=== PATIENT | male | born 1950 | race Caucasian/White ===

== ENCOUNTER 2018-01-22 09:24 | Day surgery (SDC) | payer MEDICARE, BC ==
[~2018-01-22 09:24] MED LIST: Lactated Ringers 1,000 ML IV SCH; Lidocaine 1%/Sod Bicarbonate in NS 8.4% 1 ML Syringe IDERM PRN; Sodium Chloride 0.9% 10 ML Syringe FLUSH PRN
[2018-01-22] MEDS ORDERED: Lidocaine 1% 4 ML ONE (09:43)
[2018-01-22] MEDS ORDERED: fentaNYL 100 MCG/2 ML SDV ONE (09:43)
[2018-01-22] MEDS ORDERED: Propofol 200 MG/20 ML SDV ONE (09:43)
[2018-01-22] MEDS ORDERED: Metoprolol Tartrate 50 MG Tab PO ONE (10:47)
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
[2018-01-22] MEDS ORDERED: Simethicone Drops 40 MG/0.6 ML 30 ML Bottle ONE (12:02)
--- NOTE | 2018-01-22 12:16 | PCM.OPNOTE ---
- General Post-Op/Procedure Note Date of Surgery/Procedure: 01/22/18 Operative Procedure(s): colonosocopy to cecum screening Pre Op Diagnosis: screening colonoscopy Post-Op Diagnosis: Same Anesthesia Technique: MAC Primary Surgeon: Shahriar Arenas EBL in mLs: 0 Complications: None Condition: Good
--- NOTE | 2018-01-22 12:22 | PCM48HPAN ---
Post Anesthesia Note - EVALUATION WITHIN 48HRS OF ANESTHETIC Vital Signs in Normal Range: Yes Patient Participated in Evaluation: Yes Respiratory Function Stable: Yes Airway Patent: Yes Cardiovascular Function Stable: Yes Hydration Status Stable: Yes Pain Control Satisfactory: Yes Nausea and Vomiting Control Satisfactory: Yes Mental Status Recovered: Yes Pulse Rate: 62 SaO2: 93 Resp Rate: 16 Temperature: 98.3 F Blood Pressure: 95/49
[2018-01-22 13:37] VITALS: BP 119/81
--- NOTE | 2018-01-23 08:24 | OR ---
DATE OF OPERATION: 01/22/2018 SURGEON: Shahriar Arenas MD PREOPERATIVE DIAGNOSIS: Screening colonoscopy. POSTOPERATIVE DIAGNOSIS: Screening colonoscopy. OPERATION PERFORMED: Colonoscopy to cecum. FINDINGS: Normal study. RECOMMENDATION: Repeat colonoscopy in 10 years. DESCRIPTION OF PROCEDURE: The patient was taken to the endoscopy room, placed in a supine position, connected to monitoring equipment, given IV sedation. He was placed in left lateral position. The area was unremarkable. Rectal exam showed good sphincter tone. A video Olympus colonoscope was then introduced into the rectum and threaded up without problem to the cecum, where the appendicular orifice and ileocecal valve were noted. Prep was excellent throughout the colon. [place] cleansing score grade A. The scope was slowly withdrawn showing the cecum, ascending colon, transverse colon, descending colon, sigmoid colon, and rectum. Retroflexed view was done. The patient tolerated the procedure, sent to recovery room in a stable condition, will be followed up as needed in the clinic. ANESTHESIA: ESTIMATED BLOOD LOSS: MMODAL /[id number]
== END 2018-01-22 13:30 | disposition home or self-care (01) ==
LOC: JD.SDS 09:24
PROVIDERS: ATTEND Surgery
DX: Z12.11 Encounter for screening for malignant neoplasm of colon (principal); J45.20 Mild intermittent asthma, uncomplicated; I10 Essential (primary) hypertension; E78.00 Pure hypercholesterolemia, unspecified; Z79.82 Long term (current) use of aspirin; Z79.899 Other long term (current) drug therapy; Z88.7 Allergy status to serum and vaccine
CPT/HCPCS: A9270; G0121; J2001; J3010; J7120; J2704

== ENCOUNTER 2021-09-30 12:31 | Inpatient (IN) | payer MEDICARE, BC ==
[2021-09-30] MEDS ORDERED: Sodium Chloride 0.9% 10 ML Syringe FLUSH PRN (13:04)
[2021-09-30] MEDS ORDERED: Sodium Chloride 0.9% 1,000 ML IV STA (13:05)
[2021-09-30] MEDS ORDERED: Ondansetron 4 MG/2 ML SDV IVPUSH ONE (13:05)
[2021-09-30] MEDS ORDERED: Diatrizoate Meglumine/Diatrizoate Sodium 37% 120 ML Bottle PO ONE (13:09)
[2021-09-30] MEDS ORDERED: Lactated Ringers 1,000 ML IV SCH (15:45)
[2021-09-30] MEDS ORDERED: Albuterol 6.7 GM Inhaler INH PRN ×2 (17:05→17:12)
[2021-09-30] MEDS: Acetaminophen 325 MG Tab PO SCH (18:25)
[2021-09-30] MEDS: Simvastatin 40 MG Tab PO SCH (20:09)
[2021-10-01] MEDS: Lactated Ringers 1,000 ML IV SCH ×2 (01:11→17:25)
[2021-10-01] MEDS: Acetaminophen 325 MG Tab PO SCH ×3 (02:13→17:14)
[2021-10-01] MEDS ORDERED: fentaNYL 250 MCG/5 ML SDV ONE (06:26)
[2021-10-01] MEDS ORDERED: Midazolam 1 MG/ML 2 ML SDV ONE (06:26)
[2021-10-01] MEDS ORDERED: Succinylcholine/Sod PF 100 MG/5 ML SYRINGE IV ONE (06:27)
[2021-10-01] MEDS: Metoprolol Tartrate 50 MG Tab PO SCH ×2 (06:27→08:34)
[2021-10-01] MEDS ORDERED: Lidocaine 1% 8 ML ONE (06:28)
[2021-10-01] MEDS ORDERED: Bupivacaine 0.5% 30 ML SDV ONE (06:28)
[2021-10-01] MEDS ORDERED: Etomidate 2 MG/ML 20 ML SDV IVPUSH ONE (06:32)
[2021-10-01] MEDS ORDERED: Dexamethasone 4 MG/ML 5 ML MDV ONE (06:34)
[2021-10-01] MEDS ORDERED: Ondansetron 4 MG/2 ML SDV ONE (06:34)
[2021-10-01] MEDS ORDERED: Rocuronium 50 MG/5 ML Vial ONE (07:15)
[2021-10-01] MEDS ORDERED: ePHEDrine 50 MG/ML SDV ONE (07:26)
[2021-10-01] MEDS ORDERED: ceFAZolin 1 GM Vial ONE (07:32)
[2021-10-01] MEDS ORDERED: Lactated Ringers 1,000 ML ONE ×2 (08:12)
[2021-10-01] MEDS ORDERED: fentaNYL 100 MCG/2 ML SDV IVPUSH PRN (08:27)
[2021-10-01] MEDS ORDERED: HYDROmorphone 0.5 MG/0.5 ML Syringe IVPUSH PRN (08:27)
[2021-10-01] MEDS ORDERED: Sugammadex Sodium 200 MG/2 ML VIAL ONE (08:40)
[2021-10-01] MEDS ORDERED: Albuterol 0.083% 2.5 MG/3 ML Neb Soln NEB ONE ×2 (09:47→10:00)
[2021-10-01] MEDS ORDERED: Albuterol 0.083% 2.5 MG/3 ML Neb Soln ONE (09:53)
[2021-10-01] MEDS: Simvastatin 40 MG Tab PO SCH (20:23)
[2021-10-02] MEDS: Acetaminophen 325 MG Tab PO SCH ×2 (01:01→10:01)
[2021-10-02] MEDS: Lactated Ringers 1,000 ML IV SCH (01:03)
[2021-10-02] MEDS ORDERED: oxyCODONE 5 MG Tab PO PRN (08:05)
[2021-10-02] MEDS ORDERED: Ondansetron 4 MG Tab.DIS PO PRN (08:06)
[2021-10-02] MEDS ORDERED: Docusate Sodium 100 MG Cap PO SCH (09:00)
[2021-10-02] MEDS ORDERED: Tamsulosin 0.4 MG Cap.ER PO SCH (09:00)
[2021-10-02] MEDS: Metoprolol Tartrate 50 MG Tab PO SCH (10:01)
[2021-10-02] MEDS ORDERED: Simethicone 80 MG Tab.Chew PO SCH (11:00)
[2021-10-02 15:03] VITALS: BP 156/92; PULSE 77
== END 2021-10-02 15:46 | disposition home or self-care (01) | DRG 352 ==
LOC: JD.ED 12:31 → JD.MS 17:01
PROVIDERS: ADMIT Surgery; ATTEND Surgery
PROC: 0D9670Z Drainage of Stomach with Drainage Device, Via Natural or Artificial Opening (ICD-10-PCS; 2021-09-30)
PROC: 0YQ64ZZ Repair Left Inguinal Region, Percutaneous Endoscopic Approach (ICD-10-PCS; principal; 2021-10-01)
DX: K40.30 Unilateral inguinal hernia, with obstruction, without gangrene, not specified as recurrent (principal); K56.699 Other intestinal obstruction unspecified as to partial versus complete obstruction; K40.31 Unilateral inguinal hernia, with obstruction, without gangrene, recurrent; J45.909 Unspecified asthma, uncomplicated; Z91.048 Other nonmedicinal substance allergy status; I65.29 Occlusion and stenosis of unspecified carotid artery; Z90.49 Acquired absence of other specified parts of digestive tract; Z20.822 Contact with and (suspected) exposure to COVID-19; Z88.7 Allergy status to serum and vaccine; Z79.82 Long term (current) use of aspirin; Z91.09 Other allergy status, other than to drugs and biological substances; Z79.899 Other long term (current) drug therapy; Z87.442 Personal history of urinary calculi; Z90.89 Acquired absence of other organs
CPT/HCPCS: 36415; 74176; 80053; 83690; 85025; 86140; J2405; J7030; J7120; Q9963; 00840; 71045; 71045-26; 80048; 94640; 94760; 94761; 99140; 99285; A9270-GY; C1781; J0330; J0690; J1100; J2250; J2370; J2710; J3010; J3490; U0002

== ENCOUNTER 2024-09-23 11:31 | Inpatient (IN) | payer MEDICARE, BC ==
[2024-09-23] MEDS ORDERED: Naloxone 0.4 MG/ML SDV IVPUSH PRN (11:49)
[2024-09-23] MEDS: fentaNYL 100 MCG/2 ML SDV IVPUSH ONE (12:00)
[2024-09-23 12:03] LABS: BASOPHILS ABSOLUTE AUTO 0.1 K/mm3 (0.0-0.2); EOSINOPHILS ABSOLUTE AUTO 0.4 K/mm3 (0.0-0.4); EOSINOPHILS PERCENT AUTO 4.8 % (0.0-6.0); HEMATOCRIT 53.3 % (42.0-52.0); HEMOGLOBIN 17.5 gm/dl (14.0-18.0); IMMATURE GRAN ABSOLUTE AUTO 0.03 K/mm3 (0.00-0.05); IMMATURE GRAN PERCENT AUTO 0.3 % (0.0-0.4); LYMPHOCYTES ABSOLUTE AUTO 1.5 K/mm3 (1.0-4.8); LYMPHOCYTES PERCENT AUTO 17.3 % (24.0-44.0); MEAN CORPUSCULAR HEMOGLOBIN 30.9 pg (28.0-32.0); MEAN CORPUSCULAR HGB CONC 32.8 g/dl (32.0-36.0); MEAN CORPUSCULAR VOLUME 94.2 fl (83.0-99.0); MEAN PLATELET VOLUME 9.9 fl (9.4-12.4); MONOCYTES ABSOLUTE AUTO 0.6 K/mm3 (0.0-0.8); MONOCYTES PERCENT AUTO 7.2 % (0.0-8.0); NEUTROPHILS ABSOLUTE AUTO 6.1 K/mm3 (1.8-7.7); NEUTROPHILS PERCENT AUTO 69.4 % (41.0-71.0); PLATELET COUNT,PLT 159 K/mm3 (150-400); RED BLOOD CELL COUNT 5.66 M/mm3 (4.52-5.90); WHITE BLOOD CELL COUNT,WBC 8.79 K/mm3 (3.9-11.3)
[2024-09-23] MEDS: Diphtheria,Pertussis(Acell),Tetanus Vaccine 0.5 ML Syringe IM ONE (12:03)
[2024-09-23] MEDS: Albuterol/Ipratropium 3.0-0.5 MG/3 ML Neb Soln NEB ONE (12:08)
[2024-09-23 12:29] LABS: ALANINE AMINOTRANSFERASE,ALT 12 U/L (16-63); ALBUMIN 3.6 g/dl (3.4-5.0); ALKALINE PHOSPHATASE 103 U/L (46-116); ANION GAP 7.7 (5-15); ASPARTATE AMNIOTRANSFERASE,AST 12 U/L (15-37); BILIRUBIN TOTAL 0.8 mg/dL (0.2-1.0); BLOOD UREA NITROGEN,BUN 25 mg/dL (7-18); BUN/CREATININE RATIO 15.6 (14-18); CALCIUM 8.8 mg/dL (8.5-10.1); CARBON DIOXIDE,CO2 33 mEq/L (21-32); CHLORIDE,CL 103 mEq/L (98-107); CREATINE KINASE,CK 142 U/L (39-308); CREATININE 1.6 mg/dL (0.7-1.3); ESTIMATED GFR 46 mL/min (>60); GLUCOSE RANDOM 109 mg/dL (70-99); POTASSIUM,K 4.7 mEq/L (3.5-5.1); PROTEIN TOTAL,TP 7.3 g/dl (6.4-8.2); SODIUM,NA 139 mEq/L (136-145)
[2024-09-23] MEDS ORDERED: Melatonin 3 MG Tab PO PRN (16:05)
[2024-09-23] MEDS ORDERED: Ondansetron 4 MG/2 ML SDV IV PRN (16:05)
[2024-09-23] MEDS ORDERED: Morphine 2 MG/ML SYRINGE IVPUSH PRN (16:05)
[2024-09-23] MEDS: Albuterol/Ipratropium 3.0-0.5 MG/3 ML Neb Soln NEB SCH (20:49)
[2024-09-23] MEDS: oxyCODONE 5 MG Tab PO PRN (21:53)
[2024-09-24 04:56] LABS: INR 1.16; PROTHROMBIN TIME 12.2 SECONDS (9.7-12.0)
[2024-09-24 04:57] LABS: PTT,PARTIAL THROMBOPLSTIN TIME 29.6 SECONDS (21.7-31.4)
[2024-09-24] MEDS ORDERED: Albuterol 0.083% 2.5 MG/3 ML Neb Soln NEB PRN (09:56)
[2024-09-24] MEDS: Polyethylene Glycol 3350 Powder 17 GM Packet PO PRN (10:59)
[2024-09-24] MEDS: Enoxaparin 40 MG/0.4 ML Syringe SUBCUT SCH (10:59)
[2024-09-24] MEDS: Metoprolol Tartrate 50 MG Tab PO SCH (11:00)
[2024-09-24] MEDS: Docusate Sodium 100 MG Cap PO SCH (11:00)
[2024-09-24] MEDS: Tamsulosin 0.4 MG Cap.ER PO SCH (11:00)
[2024-09-24] MEDS: Morphine 2 MG/ML SYRINGE IVPUSH PRN (16:42)
[2024-09-24 18:22] LABS: APPEARANCE,URINE TURBID (Clear); BILIRUBIN,URINE 1+ (Negative); COLOR,URINE RED (Yellow); GLUCOSE,URINE NEGATIVE (Negative); KETONES,URINE TRACE (Negative); LEUKOCYTE ESTERASE,URINE 1+ (Negative); NITRITE,URINE POSITIVE (Negative); OCCULT BLOOD,URINE 3+ (Negative); PH,URINE 5.5 (5.0-8.0); PROTEIN,URINE 3+ (Negative)
[2024-09-24 18:48] LABS: EPITHELIAL CELLS,URINE 0-5 /hpf (0-5); RBC,URINE 50-75 /hpf (0-5)
[2024-09-24 18:49] LABS: AMORPHOUS SEDIMENT,URINE MODERATE /hpf (NOT SEEN); BACTERIA,URINE MANY /hpf (FEW); MUCUS,URINE FEW /hpf (FEW)
[2024-09-24 18:50] LABS: YEAST BUDDING,URINE FEW (NOT SEEN)
[2024-09-24] MEDS: Sodium Chloride 0.9% 1,000 ML IV SCH (18:53)
[2024-09-24 19:17] LABS: BASOPHILS PERCENT AUTO 0.3 % (0.0-1.0); EOSINOPHILS ABSOLUTE AUTO 0.2 K/mm3 (0.0-0.4); EOSINOPHILS PERCENT AUTO 1.3 % (0.0-6.0); HEMATOCRIT 50.2 % (42.0-52.0); HEMOGLOBIN 16.6 gm/dl (14.0-18.0); IMMATURE GRAN ABSOLUTE AUTO 0.05 K/mm3 (0.00-0.05); IMMATURE GRAN PERCENT AUTO 0.4 % (0.0-0.4); LYMPHOCYTES ABSOLUTE AUTO 0.7 K/mm3 (1.0-4.8); LYMPHOCYTES PERCENT AUTO 5.7 % (24.0-44.0); MEAN CORPUSCULAR HGB CONC 33.1 g/dl (32.0-36.0); MEAN CORPUSCULAR VOLUME 93.7 fl (83.0-99.0); MEAN PLATELET VOLUME 10.2 fl (9.4-12.4); MONOCYTES PERCENT AUTO 8.1 % (0.0-8.0); NEUTROPHILS ABSOLUTE AUTO 10.3 K/mm3 (1.8-7.7); NEUTROPHILS PERCENT AUTO 84.2 % (41.0-71.0); PLATELET COUNT,PLT 146 K/mm3 (150-400); RED BLOOD CELL COUNT 5.36 M/mm3 (4.52-5.90); WHITE BLOOD CELL COUNT,WBC 12.21 K/mm3 (3.9-11.3)
[2024-09-24 19:33] LABS: ANION GAP 9.4 (5-15); BUN/CREATININE RATIO 20.7 (14-18); CALCIUM 8.6 mg/dL (8.5-10.1); CREATININE 1.5 mg/dL (0.7-1.3); EST CRCL DRUG DOSING (CG) 43.07 mL/min; POTASSIUM,K 4.4 mEq/L (3.5-5.1)
[2024-09-24] MEDS: atorvaSTATin 20 MG Tab PO SCH (20:08)
[2024-09-24] MEDS: cefTRIAXone 1 GM Vial IVPUSH SCH (20:08)
[2024-09-25 05:00] LABS: BASOPHILS PERCENT AUTO 0.2 % (0.0-1.0); EOSINOPHILS PERCENT AUTO 0.2 % (0.0-6.0); HEMATOCRIT 53.3 % (42.0-52.0); HEMOGLOBIN 17.5 gm/dl (14.0-18.0); IMMATURE GRAN ABSOLUTE AUTO 0.04 K/mm3 (0.00-0.05); IMMATURE GRAN PERCENT AUTO 0.3 % (0.0-0.4); LYMPHOCYTES ABSOLUTE AUTO 0.7 K/mm3 (1.0-4.8); LYMPHOCYTES PERCENT AUTO 4.7 % (24.0-44.0); MEAN CORPUSCULAR HEMOGLOBIN 30.8 pg (28.0-32.0); MEAN CORPUSCULAR HGB CONC 32.8 g/dl (32.0-36.0); MEAN CORPUSCULAR VOLUME 93.7 fl (83.0-99.0); MEAN PLATELET VOLUME 10.8 fl (9.4-12.4); NEUTROPHILS ABSOLUTE AUTO 12.9 K/mm3 (1.8-7.7); NEUTROPHILS PERCENT AUTO 87.6 % (41.0-71.0); PLATELET COUNT,PLT 152 K/mm3 (150-400); RED BLOOD CELL COUNT 5.69 M/mm3 (4.52-5.90); WHITE BLOOD CELL COUNT,WBC 14.67 K/mm3 (3.9-11.3)
[2024-09-25 05:22] LABS: A/G RATIO 0.8 (1-2); ALBUMIN 3.4 g/dl (3.4-5.0); ANION GAP 9.9 (5-15); BILIRUBIN TOTAL 1.1 mg/dL (0.2-1.0); BUN/CREATININE RATIO 18.6 (14-18); CALCIUM 8.8 mg/dL (8.5-10.1); CREATININE 1.4 mg/dL (0.7-1.3); EST CRCL DRUG DOSING (CG) 46.14 mL/min; MAGNESIUM 1.8 mg/dL (1.8-2.4); POTASSIUM,K 3.9 mEq/L (3.5-5.1); PROTEIN TOTAL,TP 7.7 g/dl (6.4-8.2)
[2024-09-25] MEDS ORDERED: Tranexamic Acid 1,000 MG/10 ML Vial ONE (07:23)
[2024-09-25] MEDS ORDERED: VANCOmycin 1 GM SDV ONE (07:23)
[2024-09-25] MEDS ORDERED: Morphine 8 MG, EPINEPHrine 0.3 MG, Cefuroxime 750 MG, Ketorolac 30 MG, Sodium Chloride ... PRN (07:55)
[2024-09-25] MEDS: Sodium Chloride 0.9% 1,000 ML IV SCH (11:11)
[2024-09-25] MEDS: Doxycycline Monohydrate 100 MG Cap PO SCH (11:14)
[2024-09-25 11:46] LABS: HEMOGLOBIN A1C 5.1 %
[2024-09-25] MEDS: cefTRIAXone 2 GM Vial IVPUSH SCH (19:46)
[2024-09-26 04:45] LABS: BASOPHILS ABSOLUTE AUTO 0.1 K/mm3 (0.0-0.2); BASOPHILS PERCENT AUTO 0.2 % (0.0-1.0); EOSINOPHILS ABSOLUTE AUTO 0.1 K/mm3 (0.0-0.4); EOSINOPHILS PERCENT AUTO 0.3 % (0.0-6.0); HEMATOCRIT 54.7 % (42.0-52.0); HEMOGLOBIN 18.4 gm/dl (14.0-18.0); IMMATURE GRAN ABSOLUTE AUTO 0.12 K/mm3 (0.00-0.05); IMMATURE GRAN PERCENT AUTO 0.6 % (0.0-0.4); LYMPHOCYTES ABSOLUTE AUTO 0.9 K/mm3 (1.0-4.8); LYMPHOCYTES PERCENT AUTO 4.1 % (24.0-44.0); MEAN CORPUSCULAR HEMOGLOBIN 31.1 pg (28.0-32.0); MEAN CORPUSCULAR HGB CONC 33.6 g/dl (32.0-36.0); MEAN CORPUSCULAR VOLUME 92.4 fl (83.0-99.0); MEAN PLATELET VOLUME 10.9 fl (9.4-12.4); MONOCYTES ABSOLUTE AUTO 1.1 K/mm3 (0.0-0.8); MONOCYTES PERCENT AUTO 5.4 % (0.0-8.0); NEUTROPHILS ABSOLUTE AUTO 18.7 K/mm3 (1.8-7.7); NEUTROPHILS PERCENT AUTO 89.4 % (41.0-71.0); PLATELET COUNT,PLT 163 K/mm3 (150-400); RED BLOOD CELL COUNT 5.92 M/mm3 (4.52-5.90); WHITE BLOOD CELL COUNT,WBC 20.93 K/mm3 (3.9-11.3)
[2024-09-26 05:19] LABS: A/G RATIO 0.7 (1-2); ALBUMIN 3.1 g/dl (3.4-5.0); ANION GAP 11.2 (5-15); BUN/CREATININE RATIO 22.4 (14-18); CALCIUM 9.4 mg/dL (8.5-10.1); CREATININE 1.7 mg/dL (0.7-1.3); MAGNESIUM 1.9 mg/dL (1.8-2.4); POTASSIUM,K 4.2 mEq/L (3.5-5.1); PROTEIN TOTAL,TP 7.7 g/dl (6.4-8.2)
[2024-09-26] MEDS ORDERED: Morphine 8 MG, EPINEPHrine 0.3 MG, Cefuroxime 750 MG, Ketorolac 30 MG, Sodium Chloride ... PRN (06:00)
[2024-09-26] MEDS ORDERED: VANCOmycin 1 GM SDV ONE (06:38)
[2024-09-26] MEDS ORDERED: Tranexamic Acid 1,000 MG/10 ML Vial ONE (06:38)
[2024-09-26] MEDS: Sodium Chloride 0.9% 1,000 ML IV SCH (07:48)
[2024-09-26] MEDS: methylPREDNISolone Sodium Succinate 40 MG/1 ML SDV IVPUSH ONE (10:05)
[2024-09-26] MEDS: Enoxaparin 40 MG/0.4 ML Syringe SUBCUT SCH (12:52)
[2024-09-27 04:37] LABS: BASOPHILS PERCENT AUTO 0.1 % (0.0-1.0); HEMATOCRIT 48.8 % (42.0-52.0); HEMOGLOBIN 15.8 gm/dl (14.0-18.0); IMMATURE GRAN PERCENT AUTO 0.6 % (0.0-0.4); LYMPHOCYTES ABSOLUTE AUTO 0.7 K/mm3 (1.0-4.8); LYMPHOCYTES PERCENT AUTO 4.1 % (24.0-44.0); MEAN CORPUSCULAR HEMOGLOBIN 30.8 pg (28.0-32.0); MEAN CORPUSCULAR HGB CONC 32.4 g/dl (32.0-36.0); MEAN CORPUSCULAR VOLUME 95.1 fl (83.0-99.0); MEAN PLATELET VOLUME 11.1 fl (9.4-12.4); MONOCYTES PERCENT AUTO 5.7 % (0.0-8.0); NEUTROPHILS ABSOLUTE AUTO 15.6 K/mm3 (1.8-7.7); NEUTROPHILS PERCENT AUTO 89.5 % (41.0-71.0); PLATELET COUNT,PLT 156 K/mm3 (150-400); RED BLOOD CELL COUNT 5.13 M/mm3 (4.52-5.90); WHITE BLOOD CELL COUNT,WBC 17.45 K/mm3 (3.9-11.3)
[2024-09-27 05:08] LABS: A/G RATIO 0.6 (1-2); ALBUMIN 2.5 g/dl (3.4-5.0); ANION GAP 12.4 (5-15); BILIRUBIN TOTAL 0.5 mg/dL (0.2-1.0); BUN/CREATININE RATIO 35.3 (14-18); CALCIUM 8.7 mg/dL (8.5-10.1); CREATININE 1.7 mg/dL (0.7-1.3); MAGNESIUM 1.9 mg/dL (1.8-2.4); POTASSIUM,K 4.4 mEq/L (3.5-5.1); PROTEIN TOTAL,TP 6.6 g/dl (6.4-8.2)
[2024-09-27] MEDS: predniSONE 20 MG Tab PO SCH (05:59)
[2024-09-27 13:00] LABS: BASE EXCESS ARTERIAL -0.5 (-2-2.0); BICARBONATE,ARTERIAL 26.4 meq/L (22.0-26.0); O2 SATURATION ARTERIAL 96.5 % (96.0-97.0)
[2024-09-28 05:41] LABS: BASOPHILS PERCENT AUTO 0.1 % (0.0-1.0); HEMATOCRIT 47.1 % (42.0-52.0); HEMOGLOBIN 15.4 gm/dl (14.0-18.0); IMMATURE GRAN ABSOLUTE AUTO 0.05 K/mm3 (0.00-0.05); IMMATURE GRAN PERCENT AUTO 0.4 % (0.0-0.4); LYMPHOCYTES ABSOLUTE AUTO 0.9 K/mm3 (1.0-4.8); LYMPHOCYTES PERCENT AUTO 6.5 % (24.0-44.0); MEAN CORPUSCULAR HEMOGLOBIN 30.7 pg (28.0-32.0); MEAN CORPUSCULAR HGB CONC 32.7 g/dl (32.0-36.0); MEAN PLATELET VOLUME 10.5 fl (9.4-12.4); MONOCYTES ABSOLUTE AUTO 1.3 K/mm3 (0.0-0.8); MONOCYTES PERCENT AUTO 9.3 % (0.0-8.0); NEUTROPHILS ABSOLUTE AUTO 11.5 K/mm3 (1.8-7.7); NEUTROPHILS PERCENT AUTO 83.7 % (41.0-71.0); PLATELET COUNT,PLT 175 K/mm3 (150-400); RED BLOOD CELL COUNT 5.01 M/mm3 (4.52-5.90); WHITE BLOOD CELL COUNT,WBC 13.76 K/mm3 (3.9-11.3)
[2024-09-28] MEDS: Furosemide 20 MG/2 ML VIAL IVPUSH ONE (14:01)
[2024-09-29 06:00] LABS: BASOPHILS PERCENT AUTO 0.1 % (0.0-1.0); EOSINOPHILS PERCENT AUTO 0.3 % (0.0-6.0); HEMATOCRIT 46.3 % (42.0-52.0); HEMOGLOBIN 15.6 gm/dl (14.0-18.0); IMMATURE GRAN ABSOLUTE AUTO 0.07 K/mm3 (0.00-0.05); IMMATURE GRAN PERCENT AUTO 0.6 % (0.0-0.4); LYMPHOCYTES ABSOLUTE AUTO 1.1 K/mm3 (1.0-4.8); LYMPHOCYTES PERCENT AUTO 9.8 % (24.0-44.0); MEAN CORPUSCULAR HEMOGLOBIN 31.1 pg (28.0-32.0); MEAN CORPUSCULAR HGB CONC 33.7 g/dl (32.0-36.0); MEAN CORPUSCULAR VOLUME 92.2 fl (83.0-99.0); MEAN PLATELET VOLUME 10.2 fl (9.4-12.4); MONOCYTES ABSOLUTE AUTO 1.2 K/mm3 (0.0-0.8); MONOCYTES PERCENT AUTO 10.5 % (0.0-8.0); NEUTROPHILS ABSOLUTE AUTO 8.7 K/mm3 (1.8-7.7); NEUTROPHILS PERCENT AUTO 78.7 % (41.0-71.0); PLATELET COUNT,PLT 175 K/mm3 (150-400); RED BLOOD CELL COUNT 5.02 M/mm3 (4.52-5.90); WHITE BLOOD CELL COUNT,WBC 11.08 K/mm3 (3.9-11.3)
[2024-09-29 07:01] LABS: FOLIC ACID 6.5 ng/mL (8.6-58.9); SALICYLATE 2.7 mg/dL (2.8-20.0)
[2024-09-29 07:24] LABS: ANION GAP 9.1 (5-15); BUN/CREATININE RATIO 37.7 (14-18); C-REACTIVE PROTEIN 3.14 mg/dL (<0.30); CALCIUM 8.4 mg/dL (8.5-10.1); CREATININE 1.3 mg/dL (0.7-1.3); EST CRCL DRUG DOSING (CG) 49.69 mL/min; PHOSPHORUS 2.9 mg/dL (2.6-4.7); POTASSIUM,K 4.1 mEq/L (3.5-5.1); TSH 1.408 uIU/mL (0.358-3.74)
[2024-09-29 08:03] LABS: VITAMIN D,25-HYDROXY 14.1 ng/ml (30.0-100.0)
[2024-09-29] MEDS: Acetaminophen 325 MG Tab PO PRN (09:26)
[2024-09-29] MEDS ORDERED: Folic Acid 50 MG/10 ML MDV IV SCH (14:15)
[2024-09-29] MEDS: Phosphorus #1 250 MG Tab PO ONE (15:34)
[2024-09-29] MEDS: Cholecalciferol (Vitamin D3) 5,000 UNIT Cap PO SCH (15:35)
[2024-09-29] MEDS: Folic Acid 1 MG Tab PO SCH (15:36)
[2024-09-30 05:46] LABS: BASOPHILS ABSOLUTE AUTO 0.1 K/mm3 (0.0-0.2); BASOPHILS PERCENT AUTO 0.5 % (0.0-1.0); EOSINOPHILS ABSOLUTE AUTO 0.3 K/mm3 (0.0-0.4); EOSINOPHILS PERCENT AUTO 3.5 % (0.0-6.0); HEMATOCRIT 49.7 % (42.0-52.0); HEMOGLOBIN 16.6 gm/dl (14.0-18.0); IMMATURE GRAN ABSOLUTE AUTO 0.14 K/mm3 (0.00-0.05); IMMATURE GRAN PERCENT AUTO 1.4 % (0.0-0.4); LYMPHOCYTES PERCENT AUTO 10.2 % (24.0-44.0); MEAN CORPUSCULAR HEMOGLOBIN 30.6 pg (28.0-32.0); MEAN CORPUSCULAR HGB CONC 33.4 g/dl (32.0-36.0); MEAN CORPUSCULAR VOLUME 91.7 fl (83.0-99.0); MEAN PLATELET VOLUME 9.8 fl (9.4-12.4); MONOCYTES ABSOLUTE AUTO 1.2 K/mm3 (0.0-0.8); MONOCYTES PERCENT AUTO 11.8 % (0.0-8.0); NEUTROPHILS ABSOLUTE AUTO 7.1 K/mm3 (1.8-7.7); NEUTROPHILS PERCENT AUTO 72.6 % (41.0-71.0); PLATELET COUNT,PLT 167 K/mm3 (150-400); RED BLOOD CELL COUNT 5.42 M/mm3 (4.52-5.90); WHITE BLOOD CELL COUNT,WBC 9.76 K/mm3 (3.9-11.3)
[2024-09-30 06:15] LABS: ANION GAP 10.1 (5-15); BUN/CREATININE RATIO 36.7 (14-18); C-REACTIVE PROTEIN 1.95 mg/dL (<0.30); CALCIUM 8.7 mg/dL (8.5-10.1); CREATININE 1.2 mg/dL (0.7-1.3); EST CRCL DRUG DOSING (CG) 53.83 mL/min; POTASSIUM,K 4.1 mEq/L (3.5-5.1)
[2024-09-30] MEDS ORDERED: Propofol 200 MG/20 ML SDV ONE ×2 (09:51→11:57)
[2024-09-30] MEDS ORDERED: Ketamine 200 MG/20 ML MDV ONE (09:52)
[2024-09-30] MEDS ORDERED: Ondansetron 4 MG/2 ML SDV ONE (10:46)
[2024-09-30] MEDS ORDERED: Lidocaine 1% 5 ML VIAL ONE (11:03)
[2024-09-30] MEDS ORDERED: Phenylephrine 1% 10 MG/ML SDV ONE (11:08)
[2024-09-30] MEDS ORDERED: ceFAZolin 2 GM Vial ONE (11:28)
[2024-09-30] MEDS ORDERED: ePHEDrine 50 MG/ML SDV ONE (11:41)
[2024-09-30] MEDS: Tranexamic Acid 1,000 MG/10 ML Vial ONE (12:09)
[2024-09-30] MEDS: Morphine 8 MG, EPINEPHrine 0.3 MG, Cefuroxime 750 MG, Ketorolac 30 MG, Sodium Chloride ... PRN (12:09)
[2024-09-30] MEDS: VANCOmycin 1 GM SDV ONE (12:09)
[2024-09-30] MEDS ORDERED: HYDROmorphone 0.5 MG/0.5 ML Syringe IVPUSH PRN (12:49)
[2024-09-30] MEDS ORDERED: fentaNYL 100 MCG/2 ML SDV IVPUSH PRN (12:49)
[2024-09-30] MEDS ORDERED: Ondansetron 4 MG/2 ML SDV IVPUSH PRN (12:49)
[2024-09-30] MEDS: Dextrose 5%-0.45% NaCl 1,000 ML IV SCH (20:49)
[2024-10-01 04:39] LABS: BASOPHILS PERCENT AUTO 0.3 % (0.0-1.0); EOSINOPHILS ABSOLUTE AUTO 0.4 K/mm3 (0.0-0.4); EOSINOPHILS PERCENT AUTO 2.9 % (0.0-6.0); HEMATOCRIT 44.2 % (42.0-52.0); HEMOGLOBIN 14.9 gm/dl (14.0-18.0); IMMATURE GRAN ABSOLUTE AUTO 0.19 K/mm3 (0.00-0.05); IMMATURE GRAN PERCENT AUTO 1.3 % (0.0-0.4); LYMPHOCYTES ABSOLUTE AUTO 0.8 K/mm3 (1.0-4.8); LYMPHOCYTES PERCENT AUTO 5.2 % (24.0-44.0); MEAN CORPUSCULAR HEMOGLOBIN 31.2 pg (28.0-32.0); MEAN CORPUSCULAR HGB CONC 33.7 g/dl (32.0-36.0); MEAN CORPUSCULAR VOLUME 92.7 fl (83.0-99.0); MEAN PLATELET VOLUME 10.6 fl (9.4-12.4); MONOCYTES ABSOLUTE AUTO 1.3 K/mm3 (0.0-0.8); MONOCYTES PERCENT AUTO 8.9 % (0.0-8.0); NEUTROPHILS ABSOLUTE AUTO 12.3 K/mm3 (1.8-7.7); NEUTROPHILS PERCENT AUTO 81.4 % (41.0-71.0); PLATELET COUNT,PLT 153 K/mm3 (150-400); RED BLOOD CELL COUNT 4.77 M/mm3 (4.52-5.90); WHITE BLOOD CELL COUNT,WBC 15.08 K/mm3 (3.9-11.3)
[2024-10-01 05:13] LABS: A/G RATIO 0.7 (1-2); ALBUMIN 2.3 g/dl (3.4-5.0); ANION GAP 9.2 (5-15); BILIRUBIN TOTAL 0.7 mg/dL (0.2-1.0); BUN/CREATININE RATIO 34.7 (14-18); CALCIUM 8.1 mg/dL (8.5-10.1); CREATININE 1.5 mg/dL (0.7-1.3); EST CRCL DRUG DOSING (CG) 43.07 mL/min; MAGNESIUM 1.9 mg/dL (1.8-2.4); POTASSIUM,K 4.2 mEq/L (3.5-5.1); PROTEIN TOTAL,TP 5.6 g/dl (6.4-8.2)
[2024-10-01] MEDS: Enoxaparin 40 MG/0.4 ML Syringe SUBCUT SCH (09:03)
[2024-10-01] MEDS ORDERED: Lactated Ringers 1,000 ML IV ONE (10:34)
[2024-10-02 04:46] LABS: BASOPHILS PERCENT AUTO 0.2 % (0.0-1.0); EOSINOPHILS ABSOLUTE AUTO 0.2 K/mm3 (0.0-0.4); EOSINOPHILS PERCENT AUTO 1.1 % (0.0-6.0); HEMATOCRIT 42.7 % (42.0-52.0); HEMOGLOBIN 14.2 gm/dl (14.0-18.0); IMMATURE GRAN ABSOLUTE AUTO 0.35 K/mm3 (0.00-0.05); IMMATURE GRAN PERCENT AUTO 1.8 % (0.0-0.4); LYMPHOCYTES ABSOLUTE AUTO 1.3 K/mm3 (1.0-4.8); LYMPHOCYTES PERCENT AUTO 6.5 % (24.0-44.0); MEAN CORPUSCULAR HEMOGLOBIN 30.7 pg (28.0-32.0); MEAN CORPUSCULAR HGB CONC 33.3 g/dl (32.0-36.0); MEAN CORPUSCULAR VOLUME 92.4 fl (83.0-99.0); MEAN PLATELET VOLUME 10.9 fl (9.4-12.4); MONOCYTES ABSOLUTE AUTO 1.6 K/mm3 (0.0-0.8); MONOCYTES PERCENT AUTO 8.1 % (0.0-8.0); NEUTROPHILS ABSOLUTE AUTO 16.5 K/mm3 (1.8-7.7); NEUTROPHILS PERCENT AUTO 82.3 % (41.0-71.0); PLATELET COUNT,PLT 180 K/mm3 (150-400); RED BLOOD CELL COUNT 4.62 M/mm3 (4.52-5.90); WHITE BLOOD CELL COUNT,WBC 19.99 K/mm3 (3.9-11.3)
[2024-10-02 04:59] LABS: A/G RATIO 0.7 (1-2); ALBUMIN 2.4 g/dl (3.4-5.0); ANION GAP 10.6 (5-15); BILIRUBIN TOTAL 0.7 mg/dL (0.2-1.0); BUN/CREATININE RATIO 35.7 (14-18); CALCIUM 8.3 mg/dL (8.5-10.1); CREATININE 1.4 mg/dL (0.7-1.3); EST CRCL DRUG DOSING (CG) 46.14 mL/min; MAGNESIUM 1.8 mg/dL (1.8-2.4); POTASSIUM,K 3.6 mEq/L (3.5-5.1); PROTEIN TOTAL,TP 5.8 g/dl (6.4-8.2)
[2024-10-02 05:36] LABS: SLIDE REVIEW ABNORMAL SMEAR
[2024-10-02 12:12] VITALS: BP 102/70; PULSE 82
== END 2024-10-02 14:49 | DRG 521 ==
LOC: JD.ED 11:31 → JD.MS 13:36
PROVIDERS: ADMIT Family Medicine; ATTEND Student in an Organized Health Care Education/Training Program
PROC: 0T9B70Z Drainage of Bladder with Drainage Device, Via Natural or Artificial Opening (ICD-10-PCS; 2024-09-25)
PROC: 0SRR0JZ Replacement of Right Hip Joint, Femoral Surface with Synthetic Substitute, Open Approach (ICD-10-PCS; principal; 2024-09-30 10:00)
DX: S72.001A Fracture of unspecified part of neck of right femur, initial encounter for closed fracture (principal); J45.909 Unspecified asthma, uncomplicated; A41.59 Other Gram-negative sepsis; J18.9 Pneumonia, unspecified organism; Z91.048 Other nonmedicinal substance allergy status; J96.01 Acute respiratory failure with hypoxia; R65.20 Severe sepsis without septic shock; J45.901 Unspecified asthma with (acute) exacerbation; J98.11 Atelectasis; N30.01 Acute cystitis with hematuria; G93.40 Encephalopathy, unspecified; W00.0XXA Fall on same level due to ice and snow, initial encounter; E78.5 Hyperlipidemia, unspecified; M11.252 Other chondrocalcinosis, left hip; M11.251 Other chondrocalcinosis, right hip; H54.40 Blindness, one eye, unspecified eye; N18.31 Chronic kidney disease, stage 3a; I12.9 Hypertensive chronic kidney disease with stage 1 through stage 4 chronic kidney disease, or unspecified chronic kidney disease; R33.9 Retention of urine, unspecified; E55.9 Vitamin D deficiency, unspecified; E53.8 Deficiency of other specified B group vitamins; N40.0 Benign prostatic hyperplasia without lower urinary tract symptoms; Z88.7 Allergy status to serum and vaccine; Z79.899 Other long term (current) drug therapy; Z79.51 Long term (current) use of inhaled steroids; Z79.82 Long term (current) use of aspirin; Z90.89 Acquired absence of other organs; Z90.49 Acquired absence of other specified parts of digestive tract; Z98.890 Other specified postprocedural states
CPT/HCPCS: 36415; 36600; 51701; 51702; 51798; 70450; 70450-26; 71045; 71045-26; 73501-26-RT; 73501-RT; 73502-26-RT; 73502-RT; 73700-26-RT; 73700-RT; 80048; 80053; 80143; 80179; 81001; 82140; 82306; 82550; 82607; 82746; 82803; 83036; 83605; 83735; 83880; 84100; 84425; 84443; 84484; 85025; 85610; 85730; 86140; 86850; 86900; 86901; 87040; 87086; 87088; 87186; 87641; 90471; 90715; 93005; 93010; 93306; 94640; 94660; 94667; 94668; 94761; 96374; 97110-GP; 97116-GP; 97161-GP; 97530-GP; 99284; 99284-25; A9270-GY; C1776; J0171; J0690; J0696; J0697; J1650; J1885; J1940; J2270; J2272; J2371; J2405; J2704; J2919; J3010; J3490; J7030; J7120; J7512; J7620-GY; J7799

== ENCOUNTER 2024-10-10 11:33 | Inpatient (IN) | payer MEDICARE, BC ==
[2024-10-10] MEDS ORDERED: Sodium Chloride 0.9% 10 ML Syringe FLUSH PRN (12:09)
[2024-10-10 12:31] LABS: BASOPHILS ABSOLUTE AUTO 0.1 K/mm3 (0.0-0.2); BASOPHILS PERCENT AUTO 0.4 % (0.0-1.0); EOSINOPHILS ABSOLUTE AUTO 0.1 K/mm3 (0.0-0.4); EOSINOPHILS PERCENT AUTO 0.5 % (0.0-6.0); HEMATOCRIT 39.9 % (42.0-52.0); HEMOGLOBIN 12.8 gm/dl (14.0-18.0); IMMATURE GRAN ABSOLUTE AUTO 0.14 K/mm3 (0.00-0.05); LYMPHOCYTES ABSOLUTE AUTO 0.8 K/mm3 (1.0-4.8); LYMPHOCYTES PERCENT AUTO 5.9 % (24.0-44.0); MEAN CORPUSCULAR HEMOGLOBIN 30.8 pg (28.0-32.0); MEAN CORPUSCULAR HGB CONC 32.1 g/dl (32.0-36.0); MEAN CORPUSCULAR VOLUME 96.1 fl (83.0-99.0); MEAN PLATELET VOLUME 10.2 fl (9.4-12.4); MONOCYTES ABSOLUTE AUTO 1.2 K/mm3 (0.0-0.8); MONOCYTES PERCENT AUTO 8.8 % (0.0-8.0); NEUTROPHILS ABSOLUTE AUTO 11.7 K/mm3 (1.8-7.7); NEUTROPHILS PERCENT AUTO 83.4 % (41.0-71.0); PLATELET COUNT,PLT 323 K/mm3 (150-400); RED BLOOD CELL COUNT 4.15 M/mm3 (4.52-5.90); WHITE BLOOD CELL COUNT,WBC 14.04 K/mm3 (3.9-11.3)
[2024-10-10 12:38] LABS: A/G RATIO 0.7 (1-2); ALANINE AMINOTRANSFERASE,ALT 32 U/L (16-63); ALBUMIN 2.6 g/dl (3.4-5.0); ALKALINE PHOSPHATASE 62 U/L (46-116); ANION GAP 14.6 (5-15); ASPARTATE AMNIOTRANSFERASE,AST 18 U/L (15-37); BILIRUBIN TOTAL 0.7 mg/dL (0.2-1.0); BLOOD UREA NITROGEN,BUN 53 mg/dL (7-18); C-REACTIVE PROTEIN 4.77 mg/dL (<0.30); CALCIUM 8.4 mg/dL (8.5-10.1); CARBON DIOXIDE,CO2 26 mEq/L (21-32); CHLORIDE,CL 104 mEq/L (98-107); CREATININE 2.3 mg/dL (0.7-1.3); ESTIMATED GFR 29 mL/min (>60); GLUCOSE RANDOM 112 mg/dL (70-99); POTASSIUM,K 3.6 mEq/L (3.5-5.1); PROTEIN TOTAL,TP 6.6 g/dl (6.4-8.2); SODIUM,NA 141 mEq/L (136-145)
[2024-10-10 12:47] LABS: O2 SATURATION ARTERIAL 93.4 % (96.0-97.0)
[2024-10-10 12:48] LABS: BASE EXCESS ARTERIAL 0.9 (-2-2.0); BICARBONATE,ARTERIAL 28.9 meq/L (22.0-26.0)
[2024-10-10] MEDS: Sodium Chloride 0.9% 1,000 ML IV STA (13:24)
[2024-10-10 13:31] LABS: APPEARANCE,URINE SLT CLOUDY (Clear); BILIRUBIN,URINE NEGATIVE (Negative); COLOR,URINE YELLOW (Yellow); GLUCOSE,URINE NEGATIVE (Negative); KETONES,URINE NEGATIVE (Negative); LEUKOCYTE ESTERASE,URINE TRACE (Negative); NITRITE,URINE NEGATIVE (Negative); OCCULT BLOOD,URINE 2+ (Negative); PH,URINE 5.5 (5.0-8.0); PROTEIN,URINE 2+ (Negative)
[2024-10-10 13:53] LABS: BACTERIA,URINE MODERATE /hpf (FEW); CALCIUM OXALATE CRYSTALS,URINE FEW; HYALINE CASTS,URINE 30-40 /lpf (0-5); MUCUS,URINE FEW /hpf (FEW); RBC,URINE 20-30 /hpf (0-5)
[2024-10-10] MEDS ORDERED: cefTRIAXone 2 GM in Sodium Chloride 0.9% 100 ML IV ONE (14:20)
[2024-10-10 14:21] LABS: LACTIC ACID 0.7 mmol/L (0.4-2.0)
[2024-10-10] MEDS: cefTRIAXone 2 GM Vial IVPUSH ONE (14:44)
[2024-10-10] MEDS ORDERED: cefTRIAXone 2 GM Vial IV SCH (14:45)
[2024-10-10] MEDS ORDERED: Acetaminophen 325 MG Tab PO PRN (15:05)
[2024-10-10 16:44] LABS: BICARBONATE,ARTERIAL 27.4 meq/L (22.0-26.0); O2 SATURATION ARTERIAL 93.7 % (96.0-97.0)
[2024-10-10 16:45] LABS: BASE EXCESS ARTERIAL 0.6 (-2-2.0)
[2024-10-10] MEDS: Doxycycline 100 MG in Sodium Chloride 0.9% 100 ML IV SCH (18:54)
[2024-10-10] MEDS ORDERED: Non-Formulary Medication 1 Each (Simvastatin 40 MG Tablet) PO SCH (21:00)
[2024-10-10] MEDS: atorvaSTATin 20 MG Tab PO SCH (21:36)
[2024-10-10] MEDS: Tamsulosin 0.4 MG Cap.ER PO SCH (21:36)
[2024-10-10] MEDS: Sodium Chloride 0.9% 1,000 ML IV SCH (21:38)
[2024-10-11 04:32] LABS: BASOPHILS PERCENT AUTO 0.2 % (0.0-1.0); EOSINOPHILS ABSOLUTE AUTO 0.4 K/mm3 (0.0-0.4); EOSINOPHILS PERCENT AUTO 3.7 % (0.0-6.0); HEMATOCRIT 37.6 % (42.0-52.0); HEMOGLOBIN 12.1 gm/dl (14.0-18.0); IMMATURE GRAN ABSOLUTE AUTO 0.06 K/mm3 (0.00-0.05); IMMATURE GRAN PERCENT AUTO 0.6 % (0.0-0.4); LYMPHOCYTES ABSOLUTE AUTO 0.4 K/mm3 (1.0-4.8); LYMPHOCYTES PERCENT AUTO 3.8 % (24.0-44.0); MEAN CORPUSCULAR HEMOGLOBIN 30.6 pg (28.0-32.0); MEAN CORPUSCULAR HGB CONC 32.2 g/dl (32.0-36.0); MEAN CORPUSCULAR VOLUME 94.9 fl (83.0-99.0); MEAN PLATELET VOLUME 10.2 fl (9.4-12.4); MONOCYTES ABSOLUTE AUTO 0.5 K/mm3 (0.0-0.8); MONOCYTES PERCENT AUTO 5.2 % (0.0-8.0); NEUTROPHILS ABSOLUTE AUTO 8.4 K/mm3 (1.8-7.7); NEUTROPHILS PERCENT AUTO 86.5 % (41.0-71.0); PLATELET COUNT,PLT 290 K/mm3 (150-400); RED BLOOD CELL COUNT 3.96 M/mm3 (4.52-5.90); WHITE BLOOD CELL COUNT,WBC 9.69 K/mm3 (3.9-11.3)
[2024-10-11 05:02] LABS: A/G RATIO 0.6 (1-2); ALBUMIN 2.2 g/dl (3.4-5.0); ANION GAP 13.1 (5-15); BILIRUBIN TOTAL 0.8 mg/dL (0.2-1.0); BUN/CREATININE RATIO 31.9 (14-18); CALCIUM 7.9 mg/dL (8.5-10.1); CREATININE 1.6 mg/dL (0.7-1.3); EST CRCL DRUG DOSING (CG) 39.02 mL/min; POTASSIUM,K 3.1 mEq/L (3.5-5.1); PROTEIN TOTAL,TP 5.9 g/dl (6.4-8.2)
[2024-10-11] MEDS: Potassium Chloride 10 MEQ in Premix Bag 1 BAG IV SCH (07:54)
[2024-10-11] MEDS: Aspirin 325 MG Tab.EC PO SCH (07:59)
[2024-10-11 08:11] LABS: BASE EXCESS ARTERIAL -0.8 (-2-2.0); BICARBONATE,ARTERIAL 24.9 meq/L (22.0-26.0)
[2024-10-11] MEDS: Metoprolol Tartrate 50 MG Tab PO SCH (12:21)
[2024-10-11] MEDS: Magnesium Sulf/Wat 4 GM/50 mL 4 GM in Premix Bag 1 BAG IV ONE (12:22)
[2024-10-11] MEDS ORDERED: Sodium Chloride 0.9% 10 ML Syringe FLUSH PRN (13:23)
[2024-10-11] MEDS: Sodium Chloride 0.9% 500 ML IV ONE ×2 (13:29→15:00)
[2024-10-11] MEDS ORDERED: Sodium Chloride 0.9% 45 ML IV SCH (13:30)
[2024-10-11] MEDS: Heparin Sodium 5,000 Units/ML Vial SUBCUT SCH (13:32)
[2024-10-11] MEDS: Iopamidol 755 Mg/ML 100 ML Bottle IVPUSH ONE (13:38)
[2024-10-11] MEDS: cefTRIAXone 1 GM Vial IVPUSH SCH (14:00)
[2024-10-11] MEDS: Heparin Sodium 5,000 Units/ML Vial IVPUSH ONE (14:44)
[2024-10-11] MEDS: Heparin Sodium/D5W 250 ML IV SCH (14:45)
[2024-10-11] MEDS: Albuterol/Ipratropium 3.0-0.5 MG/3 ML Neb Soln NEB PRN (16:20)
[2024-10-11 16:57] LABS: BASE EXCESS ARTERIAL -2.8 (-2-2.0); BICARBONATE,ARTERIAL 25.7 meq/L (22.0-26.0); O2 SATURATION ARTERIAL 97.4 % (96.0-97.0)
[2024-10-11 17:24] LABS: ANION GAP 14.9 (5-15); CALCIUM 8.3 mg/dL (8.5-10.1); CREATININE 1.9 mg/dL (0.7-1.3); EST CRCL DRUG DOSING (CG) 32.86 mL/min; POTASSIUM,K 3.9 mEq/L (3.5-5.1)
[2024-10-11 20:45] LABS: O2 SATURATION ARTERIAL 98.9 % (96.0-97.0)
[2024-10-11 20:46] LABS: BASE EXCESS ARTERIAL -1.5 (-2-2.0); BICARBONATE,ARTERIAL 24.3 meq/L (22.0-26.0)
[2024-10-11] MEDS: Dextrose 5%-0.45% NaCl 1,000 ML IV SCH (20:56)
[2024-10-11] MEDS: Benzocaine 20% Topical Spray UD MUCMEM ONE (21:15)
[2024-10-12 03:02] LABS: BASOPHILS ABSOLUTE AUTO 0.1 K/mm3 (0.0-0.2); BASOPHILS PERCENT AUTO 0.5 % (0.0-1.0); EOSINOPHILS ABSOLUTE AUTO 0.5 K/mm3 (0.0-0.4); EOSINOPHILS PERCENT AUTO 4.6 % (0.0-6.0); HEMATOCRIT 37.8 % (42.0-52.0); HEMOGLOBIN 12.2 gm/dl (14.0-18.0); IMMATURE GRAN ABSOLUTE AUTO 0.05 K/mm3 (0.00-0.05); IMMATURE GRAN PERCENT AUTO 0.5 % (0.0-0.4); LYMPHOCYTES ABSOLUTE AUTO 0.9 K/mm3 (1.0-4.8); LYMPHOCYTES PERCENT AUTO 7.9 % (24.0-44.0); MEAN CORPUSCULAR HEMOGLOBIN 30.7 pg (28.0-32.0); MEAN CORPUSCULAR HGB CONC 32.3 g/dl (32.0-36.0); MEAN CORPUSCULAR VOLUME 95.2 fl (83.0-99.0); MEAN PLATELET VOLUME 9.5 fl (9.4-12.4); MONOCYTES ABSOLUTE AUTO 0.8 K/mm3 (0.0-0.8); MONOCYTES PERCENT AUTO 7.1 % (0.0-8.0); NEUTROPHILS ABSOLUTE AUTO 8.8 K/mm3 (1.8-7.7); NEUTROPHILS PERCENT AUTO 79.4 % (41.0-71.0); PLATELET COUNT,PLT 251 K/mm3 (150-400); RED BLOOD CELL COUNT 3.97 M/mm3 (4.52-5.90); WHITE BLOOD CELL COUNT,WBC 11.09 K/mm3 (3.9-11.3)
[2024-10-12 03:25] LABS: A/G RATIO 0.7 (1-2); ALBUMIN 2.3 g/dl (3.4-5.0); ANION GAP 7.8 (5-15); BILIRUBIN TOTAL 0.8 mg/dL (0.2-1.0); BUN/CREATININE RATIO 28.9 (14-18); C-REACTIVE PROTEIN 6.79 mg/dL (<0.30); CALCIUM 8.3 mg/dL (8.5-10.1); CREATININE 1.8 mg/dL (0.7-1.3); EST CRCL DRUG DOSING (CG) 34.68 mL/min; MAGNESIUM 2.2 mg/dL (1.8-2.4); POTASSIUM,K 3.8 mEq/L (3.5-5.1); PROTEIN TOTAL,TP 5.8 g/dl (6.4-8.2)
[2024-10-12] MEDS: Aspirin 81 MG Tab.Chew PO SCH (09:01)
[2024-10-12] MEDS ORDERED: Acetaminophen 325 MG Tab NGTUBE PRN (09:02)
[2024-10-12] MEDS ORDERED: Aspirin 81 MG Tab.Chew NGTUBE SCH (09:02)
[2024-10-12] MEDS: Albuterol/Ipratropium 3.0-0.5 MG/3 ML Neb Soln NEB SCH (13:32)
[2024-10-12] MEDS: cefTRIAXone 2 GM Vial IVPUSH SCH (16:03)
[2024-10-12] MEDS: Heparin Sodium 5,000 Units/ML Vial IVPUSH ONE (17:46)
[2024-10-12] MEDS: atorvaSTATin 20 MG Tab NGTUBE SCH (20:45)
[2024-10-12] MEDS: Tamsulosin 0.4 MG Cap.ER SCH (20:50)
[2024-10-13 06:55] LABS: BASE EXCESS VENOUS 3.2 (-4.0-2.0); BICARBONATE,VENOUS 27.9 meq/L (22-26); O2 SATURATION VENOUS 82.9; PH,VENOUS 7.43 (7.30-7.40)
[2024-10-13 06:56] LABS: BASOPHILS PERCENT AUTO 0.3 % (0.0-1.0); EOSINOPHILS ABSOLUTE AUTO 0.7 K/mm3 (0.0-0.4); EOSINOPHILS PERCENT AUTO 5.6 % (0.0-6.0); HEMATOCRIT 34.8 % (42.0-52.0); HEMOGLOBIN 11.3 gm/dl (14.0-18.0); IMMATURE GRAN ABSOLUTE AUTO 0.08 K/mm3 (0.00-0.05); IMMATURE GRAN PERCENT AUTO 0.7 % (0.0-0.4); LYMPHOCYTES PERCENT AUTO 7.9 % (24.0-44.0); MEAN CORPUSCULAR HEMOGLOBIN 30.5 pg (28.0-32.0); MEAN CORPUSCULAR HGB CONC 32.5 g/dl (32.0-36.0); MEAN CORPUSCULAR VOLUME 93.8 fl (83.0-99.0); MEAN PLATELET VOLUME 9.7 fl (9.4-12.4); MONOCYTES ABSOLUTE AUTO 0.6 K/mm3 (0.0-0.8); MONOCYTES PERCENT AUTO 5.1 % (0.0-8.0); NEUTROPHILS ABSOLUTE AUTO 9.8 K/mm3 (1.8-7.7); NEUTROPHILS PERCENT AUTO 80.4 % (41.0-71.0); PLATELET COUNT,PLT 218 K/mm3 (150-400); RED BLOOD CELL COUNT 3.71 M/mm3 (4.52-5.90); WHITE BLOOD CELL COUNT,WBC 12.21 K/mm3 (3.9-11.3)
[2024-10-13 07:18] LABS: A/G RATIO 0.6 (1-2); ALBUMIN 2.1 g/dl (3.4-5.0); ANION GAP 10.1 (5-15); BILIRUBIN TOTAL 0.5 mg/dL (0.2-1.0); BUN/CREATININE RATIO 29.3 (14-18); C-REACTIVE PROTEIN 5.71 mg/dL (<0.30); CALCIUM 8.4 mg/dL (8.5-10.1); CREATININE 1.4 mg/dL (0.7-1.3); EST CRCL DRUG DOSING (CG) 44.59 mL/min; POTASSIUM,K 3.1 mEq/L (3.5-5.1); PROTEIN TOTAL,TP 5.6 g/dl (6.4-8.2)
[2024-10-13] MEDS: Heparin Sodium 5,000 Units/ML Vial IVPUSH ONE ×2 (08:08→21:30)
[2024-10-13] MEDS: Aspirin 81 MG Tab.EC PO SCH (09:24)
[2024-10-13] MEDS: Metoprolol Tartrate 50 MG Tab NGTUBE SCH (09:24)
[2024-10-13] MEDS: Potassium Chloride 10 MEQ in Premix Bag 1 BAG IV SCH (10:22)
[2024-10-13] MEDS: Furosemide 20 MG/2 ML VIAL IVPUSH ONE (10:22)
[2024-10-13] MEDS: fentaNYL 100 MCG/2 ML SDV IVPUSH ONE (11:42)
[2024-10-13] MEDS: D5 1/2 NS w/ 20 mEq/L KCl 1,000 ML IV SCH (12:25)
[2024-10-14 03:16] LABS: O2 SATURATION VENOUS 78.5; PH,VENOUS 7.44 (7.30-7.40)
[2024-10-14 03:17] LABS: BICARBONATE,VENOUS 29.9 meq/L (22-26)
[2024-10-14 03:22] LABS: HEMATOCRIT 37.3 % (42.0-52.0); MEAN CORPUSCULAR HEMOGLOBIN 30.5 pg (28.0-32.0); MEAN CORPUSCULAR HGB CONC 32.2 g/dl (32.0-36.0); MEAN CORPUSCULAR VOLUME 94.9 fl (83.0-99.0); MEAN PLATELET VOLUME 9.6 fl (9.4-12.4); PLATELET COUNT,PLT 217 K/mm3 (150-400); RED BLOOD CELL COUNT 3.93 M/mm3 (4.52-5.90); WHITE BLOOD CELL COUNT,WBC 11.53 K/mm3 (3.9-11.3)
[2024-10-14 03:48] LABS: A/G RATIO 0.6 (1-2); ALBUMIN 2.3 g/dl (3.4-5.0); ANION GAP 9.2 (5-15); BILIRUBIN TOTAL 0.6 mg/dL (0.2-1.0); BUN/CREATININE RATIO 22.3 (14-18); C-REACTIVE PROTEIN 4.83 mg/dL (<0.30); CALCIUM 8.6 mg/dL (8.5-10.1); CREATININE 1.3 mg/dL (0.7-1.3); EST CRCL DRUG DOSING (CG) 48.02 mL/min; POTASSIUM,K 3.2 mEq/L (3.5-5.1); PROTEIN TOTAL,TP 5.9 g/dl (6.4-8.2)
[2024-10-14] MEDS: fentaNYL 100 MCG/2 ML SDV IVPUSH ONE (05:30)
[2024-10-14] MEDS: Furosemide 20 MG/2 ML VIAL IVPUSH ONE (06:24)
[2024-10-14] MEDS: Potassium Chloride 10 MEQ in Premix Bag 1 BAG IV SCH (06:26)
[2024-10-14] MEDS: Magnesium Sulfat/D5W 1GM/100ML 1 GM in Premix Bag 1 BAG IV SCH (06:28)
[2024-10-14] MEDS: D5 1/2 NS w/ 20 mEq/L KCl 1,000 ML IV SCH (08:22)
[2024-10-14] MEDS: Heparin Sodium 5,000 Units/ML Vial IVPUSH ONE (11:47)
[2024-10-15] MEDS: Heparin Sodium 5,000 Units/ML Vial IVPUSH ONE (00:50)
[2024-10-15 04:45] LABS: HEMATOCRIT 35.1 % (42.0-52.0); HEMOGLOBIN 11.6 gm/dl (14.0-18.0); MEAN CORPUSCULAR HEMOGLOBIN 30.9 pg (28.0-32.0); MEAN CORPUSCULAR VOLUME 93.6 fl (83.0-99.0); MEAN PLATELET VOLUME 10.1 fl (9.4-12.4); PLATELET COUNT,PLT 193 K/mm3 (150-400); RED BLOOD CELL COUNT 3.75 M/mm3 (4.52-5.90); WHITE BLOOD CELL COUNT,WBC 11.85 K/mm3 (3.9-11.3)
[2024-10-15 05:14] LABS: PH,VENOUS 7.45 (7.30-7.40)
[2024-10-15 05:15] LABS: BASE EXCESS VENOUS 9.9 (-4.0-2.0); BICARBONATE,VENOUS 35.4 meq/L (22-26); O2 SATURATION VENOUS 82.8
[2024-10-15 05:17] LABS: A/G RATIO 0.6 (1-2); ALBUMIN 2.1 g/dl (3.4-5.0); ANION GAP 7.4 (5-15); BILIRUBIN TOTAL 0.7 mg/dL (0.2-1.0); BUN/CREATININE RATIO 19.2 (14-18); C-REACTIVE PROTEIN 7.38 mg/dL (<0.30); CALCIUM 8.4 mg/dL (8.5-10.1); CREATININE 1.2 mg/dL (0.7-1.3); EST CRCL DRUG DOSING (CG) 52.02 mL/min; POTASSIUM,K 3.4 mEq/L (3.5-5.1); PROTEIN TOTAL,TP 5.5 g/dl (6.4-8.2)
[2024-10-15] MEDS: Apixaban 5 MG Tab PO SCH (08:07)
[2024-10-15] MEDS: Iopamidol 612 MG/ML 30 ML SDV IVPUSH ONE (09:54)
[2024-10-15] MEDS: Iopamidol 612 MG/ML 100 ML Bottle IVPUSH ONE (09:54)
[2024-10-15] MEDS: Sodium Chloride 0.9% 10 ML Syringe FLUSH ONE (09:55)
[2024-10-15 14:59] LABS: BICARBONATE,VENOUS 36.1 meq/L (22-26); O2 SATURATION VENOUS 88.4; PH,VENOUS 7.45 (7.30-7.40)
[2024-10-15 15:00] LABS: BASE EXCESS VENOUS 10.3 (-4.0-2.0)
[2024-10-15] MEDS: LORazepam 2 MG/ML SDV IVPUSH PRN (15:34)
[2024-10-16 04:37] LABS: HEMOGLOBIN 11.2 gm/dl (14.0-18.0); MEAN CORPUSCULAR HEMOGLOBIN 30.4 pg (28.0-32.0); MEAN CORPUSCULAR VOLUME 95.1 fl (83.0-99.0); MEAN PLATELET VOLUME 10.5 fl (9.4-12.4); PLATELET COUNT,PLT 173 K/mm3 (150-400); RED BLOOD CELL COUNT 3.68 M/mm3 (4.52-5.90); WHITE BLOOD CELL COUNT,WBC 11.02 K/mm3 (3.9-11.3)
[2024-10-16 05:05] LABS: A/G RATIO 0.6 (1-2); ALBUMIN 2.1 g/dl (3.4-5.0); ANION GAP 7.1 (5-15); BILIRUBIN TOTAL 0.7 mg/dL (0.2-1.0); BUN/CREATININE RATIO 19.1 (14-18); C-REACTIVE PROTEIN 9.05 mg/dL (<0.30); CALCIUM 8.6 mg/dL (8.5-10.1); CREATININE 1.1 mg/dL (0.7-1.3); EST CRCL DRUG DOSING (CG) 56.75 mL/min; POTASSIUM,K 4.1 mEq/L (3.5-5.1); PROTEIN TOTAL,TP 5.7 g/dl (6.4-8.2)
[2024-10-16] MEDS: Metoprolol Tartrate 50 MG Tab PO SCH (08:22)
[2024-10-16] MEDS: Sennosides/Docusate Sodium 50-8.6 MG Tab PO SCH (08:22)
[2024-10-16] MEDS: Albuterol/Ipratropium 3.0-0.5 MG/3 ML Neb Soln NEB PRN (14:52)
[2024-10-16] MEDS: Sodium Chloride 0.9% 500 ML IV ONE (15:50)
[2024-10-16] MEDS: Famotidine 20 MG/2 ML SDV IVPUSH SCH (20:35)
[2024-10-16] MEDS: Tamsulosin 0.4 MG Cap.ER PO SCH (20:38)
[2024-10-16] MEDS: atorvaSTATin 20 MG Tab PO SCH (20:38)
[2024-10-17 04:51] LABS: ANION GAP 8.6 (5-15); BUN/CREATININE RATIO 17.3 (14-18); C-REACTIVE PROTEIN 8.94 mg/dL (<0.30); CALCIUM 8.6 mg/dL (8.5-10.1); CREATININE 1.1 mg/dL (0.7-1.3); EST CRCL DRUG DOSING (CG) 56.75 mL/min; MAGNESIUM 1.5 mg/dL (1.8-2.4); POTASSIUM,K 3.6 mEq/L (3.5-5.1)
[2024-10-17] MEDS: Magnesium Sulf/Wat 2 GM/50 mL 2 GM/50 ML BAG IV ONE (08:26)
[2024-10-17] MEDS: Potassium Chloride 20 MEQ Tab.ER PO ONE (09:14)
[2024-10-17] MEDS: Metoprolol Succinate 50 MG Tab.ER PO SCH (09:14)
[2024-10-17] MEDS: Acetaminophen 325 MG Tab PO PRN (09:15)
[2024-10-17] MEDS: Metoprolol Succinate 25 MG Tab.ER PO ONE (12:03)
[2024-10-17] MEDS: Sennosides/Docusate Sodium 50-8.6 MG Tab PO SCH (21:02)
[2024-10-18 05:49] LABS: ANION GAP 7.7 (5-15); C-REACTIVE PROTEIN 6.21 mg/dL (<0.30); CALCIUM 8.8 mg/dL (8.5-10.1); EST CRCL DRUG DOSING (CG) 62.43 mL/min; MAGNESIUM 1.7 mg/dL (1.8-2.4); POTASSIUM,K 3.7 mEq/L (3.5-5.1)
[2024-10-18] MEDS: Metoprolol Succinate 50 MG Tab.ER PO SCH (08:03)
[2024-10-18] MEDS ORDERED: Magnesium Citrate Solution 296 ML Bottle PO ONE (08:58)
[2024-10-18] MEDS: Magnesium Oxide 400 MG Tab PO ONE (09:17)
[2024-10-18] MEDS: Potassium Chloride 20 MEQ Tab.ER PO ONE (09:18)
[2024-10-18] MEDS: Sennosides/Docusate Sodium 50-8.6 MG Tab PO SCH (21:25)
[2024-10-19 05:40] LABS: ANION GAP 7.6 (5-15); BUN/CREATININE RATIO 15.5 (14-18); C-REACTIVE PROTEIN 3.94 mg/dL (<0.30); CALCIUM 8.7 mg/dL (8.5-10.1); CREATININE 1.1 mg/dL (0.7-1.3); EST CRCL DRUG DOSING (CG) 56.75 mL/min; MAGNESIUM 1.6 mg/dL (1.8-2.4); POTASSIUM,K 3.6 mEq/L (3.5-5.1)
[2024-10-19] MEDS: Potassium Chloride 20 MEQ Tab.ER PO ONE (09:14)
[2024-10-19] MEDS: Magnesium Sulf/Wat 4 GM/50 mL 4 GM in Premix Bag 1 BAG IV ONE (09:15)
[2024-10-19] MEDS: Bisacodyl 5 MG Tab PO SCH (21:44)
[2024-10-20 05:45] LABS: ANION GAP 10.7 (5-15); BUN/CREATININE RATIO 12.5 (14-18); C-REACTIVE PROTEIN 2.17 mg/dL (<0.30); CALCIUM 8.9 mg/dL (8.5-10.1); CREATININE 1.2 mg/dL (0.7-1.3); EST CRCL DRUG DOSING (CG) 52.02 mL/min; MAGNESIUM 1.9 mg/dL (1.8-2.4); POTASSIUM,K 3.7 mEq/L (3.5-5.1)
[2024-10-20] MEDS: Magnesium Oxide 400 MG Tab PO ONE (13:17)
[2024-10-20] MEDS: Potassium Chloride 20 MEQ Tab.ER PO ONE (13:18)
[2024-10-20] MEDS: Apixaban 5 MG Tab PO SCH (20:15)
[2024-10-21 05:44] LABS: ANION GAP 8.9 (5-15); C-REACTIVE PROTEIN 1.28 mg/dL (<0.30); CALCIUM 8.5 mg/dL (8.5-10.1); EST CRCL DRUG DOSING (CG) 62.43 mL/min; MAGNESIUM 1.7 mg/dL (1.8-2.4); POTASSIUM,K 3.9 mEq/L (3.5-5.1)
[2024-10-21 12:11] VITALS: BP 104/56; PULSE 87
== END 2024-10-21 11:24 | DRG 871 ==
LOC: JD.ED 11:33 → JD.MS 15:05 → JD.ICU 10-11 19:11 → JD.MS 10-20 14:25
PROVIDERS: ADMIT Family Medicine; ATTEND Family Medicine
PROC: 4A133R1 Monitoring of Arterial Saturation, Peripheral, Percutaneous Approach (ICD-10-PCS; principal; 2024-10-10)
PROC: 5A09557 Assistance with Respiratory Ventilation, Greater than 96 Consecutive Hours, Continuous Positive Airway Pressure (ICD-10-PCS; 2024-10-10)
PROC: 3E03329 Introduction of Other Anti-infective into Peripheral Vein, Percutaneous Approach (ICD-10-PCS; 2024-10-10)
PROC: 0D9670Z Drainage of Stomach with Drainage Device, Via Natural or Artificial Opening (ICD-10-PCS; 2024-10-11)
DX: A41.9 Sepsis, unspecified organism (principal); G92.8 Other toxic encephalopathy; J18.9 Pneumonia, unspecified organism; J96.01 Acute respiratory failure with hypoxia; J96.02 Acute respiratory failure with hypercapnia; I26.99 Other pulmonary embolism without acute cor pulmonale; R41.0 Disorientation, unspecified; J98.11 Atelectasis; K56.7 Ileus, unspecified; N17.9 Acute kidney failure, unspecified; I13.0 Hypertensive heart and chronic kidney disease with heart failure and stage 1 through stage 4 chronic kidney disease, or unspecified chronic kidney disease; J44.0 Chronic obstructive pulmonary disease with (acute) lower respiratory infection; R65.20 Severe sepsis without septic shock; J45.909 Unspecified asthma, uncomplicated; E78.00 Pure hypercholesterolemia, unspecified; E86.0 Dehydration; I50.9 Heart failure, unspecified; N18.31 Chronic kidney disease, stage 3a; Z96.641 Presence of right artificial hip joint; J44.89 Other specified chronic obstructive pulmonary disease; E83.42 Hypomagnesemia; E87.6 Hypokalemia; S72.001D Fracture of unspecified part of neck of right femur, subsequent encounter for closed fracture with routine healing; Z98.890 Other specified postprocedural states; Z88.7 Allergy status to serum and vaccine; Z91.048 Other nonmedicinal substance allergy status; Z79.02 Long term (current) use of antithrombotics/antiplatelets; Z79.82 Long term (current) use of aspirin; Z79.1 Long term (current) use of non-steroidal anti-inflammatories (NSAID); Z79.899 Other long term (current) drug therapy; Z87.442 Personal history of urinary calculi; Z79.51 Long term (current) use of inhaled steroids; Z87.81 Personal history of (healed) traumatic fracture; Z90.89 Acquired absence of other organs; Z90.49 Acquired absence of other specified parts of digestive tract
CPT/HCPCS: 36415; 36600; 70450; 71045; 74176; 80053; 81001; 82803; 83605; 83880; 84484; 85025; 86140; 87040 ×2; 87086; 87428; 94660; 96361; 96374; 99285; J0696; J7030; 51702; 71275; 71275-26; 74018; 74018-26; 74019; 74019-26; 74177; 74177-26; 80048; 82947; 83735; 84100; 85027; 85379; 85730; 92610-GN; 93005; 93010; 94640; 94760; 94761; 97110-GP; 97112-GP; 97116-GP; 97161-GP; 97530-GP; 99223; 99232; 99233; 99239; A9270-GY; J1644; J1940; J2060; J3010; J3475; J3480; J3490; Q9967

== ENCOUNTER 2024-11-11 11:08 | Emergency (ER) | payer MEDICARE, BC ==
[2024-11-11 12:08] LABS: BASOPHILS ABSOLUTE AUTO 0.1 K/mm3 (0.0-0.2); EOSINOPHILS ABSOLUTE AUTO 0.1 K/mm3 (0.0-0.4); EOSINOPHILS PERCENT AUTO 2.3 % (0.0-6.0); HEMATOCRIT 41.6 % (42.0-52.0); HEMOGLOBIN 13.7 gm/dl (14.0-18.0); IMMATURE GRAN ABSOLUTE AUTO 0.06 K/mm3 (0.00-0.05); LYMPHOCYTES ABSOLUTE AUTO 1.3 K/mm3 (1.0-4.8); LYMPHOCYTES PERCENT AUTO 21.7 % (24.0-44.0); MEAN CORPUSCULAR HEMOGLOBIN 30.4 pg (28.0-32.0); MEAN CORPUSCULAR HGB CONC 32.9 g/dl (32.0-36.0); MEAN CORPUSCULAR VOLUME 92.4 fl (83.0-99.0); MEAN PLATELET VOLUME 9.9 fl (9.4-12.4); MONOCYTES PERCENT AUTO 16.9 % (0.0-8.0); NEUTROPHILS ABSOLUTE AUTO 3.5 K/mm3 (1.8-7.7); NEUTROPHILS PERCENT AUTO 57.1 % (41.0-71.0); PLATELET COUNT,PLT 164 K/mm3 (150-400); WHITE BLOOD CELL COUNT,WBC 6.05 K/mm3 (3.9-11.3)
[2024-11-11 12:48] LABS: A/G RATIO 0.9 (1-2); ALANINE AMINOTRANSFERASE,ALT 18 U/L (16-63); ALBUMIN 3.3 g/dl (3.4-5.0); ALKALINE PHOSPHATASE 74 U/L (46-116); ANION GAP 9.2 (5-15); ASPARTATE AMNIOTRANSFERASE,AST 11 U/L (15-37); BILIRUBIN TOTAL 0.6 mg/dL (0.2-1.0); BLOOD UREA NITROGEN,BUN 31 mg/dL (7-18); BUN/CREATININE RATIO 19.4 (14-18); C-REACTIVE PROTEIN 0.13 mg/dL (<0.30); CALCIUM 9.6 mg/dL (8.5-10.1); CARBON DIOXIDE,CO2 28 mEq/L (21-32); CHLORIDE,CL 104 mEq/L (98-107); CREATININE 1.6 mg/dL (0.7-1.3); ESTIMATED GFR 46 mL/min (>60); GLUCOSE RANDOM 105 mg/dL (70-99); POTASSIUM,K 4.2 mEq/L (3.5-5.1); PROTEIN TOTAL,TP 6.9 g/dl (6.4-8.2); SODIUM,NA 137 mEq/L (136-145)
[2024-11-11] MEDS: Sodium Chloride 0.9% 10 ML Syringe FLUSH ONE (13:23)
[2024-11-11] MEDS: Iopamidol 612 MG/ML 100 ML Bottle IVPUSH ONE (13:23)
[2024-11-11] MEDS: Sodium Chloride 0.9% 1,000 ML IV ONE (13:40)
[2024-11-11 19:32] VITALS: BP 141/67; PULSE 78
== END 2024-11-11 18:55 ==
LOC: JD.ED 11:08
DX: K56.7 Ileus, unspecified (principal); I10 Essential (primary) hypertension; E78.00 Pure hypercholesterolemia, unspecified; J45.909 Unspecified asthma, uncomplicated; Z88.7 Allergy status to serum and vaccine; Z91.048 Other nonmedicinal substance allergy status; Z79.51 Long term (current) use of inhaled steroids; Z79.899 Other long term (current) drug therapy; Z79.01 Long term (current) use of anticoagulants; Z79.82 Long term (current) use of aspirin
CPT/HCPCS: 36415; 74018; 74177; 80053; 85025; 86140; 87428; 96360; 96361; 99285; J7030; Q9967; 99284

== ENCOUNTER 2025-01-14 10:48 | Emergency (ER) | payer MEDICARE, BC ==
[2025-01-14 11:44] LABS: APPEARANCE,URINE CLOUDY (Clear); BILIRUBIN,URINE NEGATIVE (Negative); COLOR,URINE YELLOW (Yellow); GLUCOSE,URINE NEGATIVE (Negative); KETONES,URINE NEGATIVE (Negative); LEUKOCYTE ESTERASE,URINE 3+ (Negative); NITRITE,URINE NEGATIVE (Negative); OCCULT BLOOD,URINE 2+ (Negative); PROTEIN,URINE 2+ (Negative); UROBILINOGEN,URINE 0.2 (0.2-1.0)
[2025-01-14 12:07] LABS: SQUAMOUS EPITHELIAL CELLS,UR 0-5 /hpf (0-5); WBC,URINE TOO NUMEROUS TO CNT /hpf (0-5)
[2025-01-14 12:08] LABS: BACTERIA,URINE FEW /hpf (FEW); MUCUS,URINE FEW /hpf (FEW)
[2025-01-14 12:15] LABS: BASOPHILS ABSOLUTE AUTO 0.1 K/mm3 (0.0-0.2); BASOPHILS PERCENT AUTO 0.5 % (0.0-1.0); EOSINOPHILS ABSOLUTE AUTO 0.2 K/mm3 (0.0-0.4); EOSINOPHILS PERCENT AUTO 1.5 % (0.0-6.0); HEMATOCRIT 44.1 % (42.0-52.0); IMMATURE GRAN ABSOLUTE AUTO 0.05 K/mm3 (0.00-0.05); IMMATURE GRAN PERCENT AUTO 0.4 % (0.0-0.4); LYMPHOCYTES ABSOLUTE AUTO 1.2 K/mm3 (1.0-4.8); LYMPHOCYTES PERCENT AUTO 9.4 % (24.0-44.0); MEAN CORPUSCULAR HEMOGLOBIN 30.7 pg (28.0-32.0); MEAN CORPUSCULAR VOLUME 90.4 fl (83.0-99.0); MEAN PLATELET VOLUME 10.4 fl (9.4-12.4); MONOCYTES ABSOLUTE AUTO 0.9 K/mm3 (0.0-0.8); MONOCYTES PERCENT AUTO 7.1 % (0.0-8.0); NEUTROPHILS ABSOLUTE AUTO 10.5 K/mm3 (1.8-7.7); NEUTROPHILS PERCENT AUTO 81.1 % (41.0-71.0); PLATELET COUNT,PLT 149 K/mm3 (150-400); RED BLOOD CELL COUNT 4.88 M/mm3 (4.52-5.90); WHITE BLOOD CELL COUNT,WBC 12.96 K/mm3 (3.9-11.3)
[2025-01-14 12:45] LABS: A/G RATIO 0.8 (1-2); ALBUMIN 2.9 g/dl (3.4-5.0); ANION GAP 12.5 (5-15); BILIRUBIN TOTAL 1.5 mg/dL (0.2-1.0); BUN/CREATININE RATIO 13.1 (14-18); CREATININE 1.3 mg/dL (0.7-1.3); EST CRCL DRUG DOSING (CG) 48.96 mL/min; POTASSIUM,K 3.5 mEq/L (3.5-5.1); PROTEIN TOTAL,TP 6.4 g/dl (6.4-8.2)
[2025-01-14] MEDS: cefTRIAXone 1 GM Vial IVPUSH ONE (13:24)
[2025-01-14 14:24] VITALS: BP 121/68; PULSE 80
== END 2025-01-14 13:20 | disposition home or self-care (01) ==
LOC: JD.ED 10:48
DX: M25.552 Pain in left hip (principal); R07.81 Pleurodynia; N30.01 Acute cystitis with hematuria; I10 Essential (primary) hypertension; E78.00 Pure hypercholesterolemia, unspecified; J45.909 Unspecified asthma, uncomplicated; Z90.49 Acquired absence of other specified parts of digestive tract; Z79.899 Other long term (current) drug therapy; Z79.01 Long term (current) use of anticoagulants; Z79.82 Long term (current) use of aspirin; Z88.7 Allergy status to serum and vaccine; Z91.048 Other nonmedicinal substance allergy status; W19.XXXA Unspecified fall, initial encounter
CPT/HCPCS: 36415; 71101; 73502; 74018; 80053; 80307; 81001; 83690; 85025; 87086; 96374; 99284; J0696

== ENCOUNTER 2025-06-04 17:29 | Emergency (ER) | payer MEDICARE, BC ==
[2025-06-04 17:40] VITALS: PULSE 79
[2025-06-04 17:58] LABS: BASOPHILS ABSOLUTE AUTO 0.1 K/mm3 (0.0-0.2); BASOPHILS PERCENT AUTO 1.2 % (0.0-1.0); EOSINOPHILS ABSOLUTE AUTO 0.7 K/mm3 (0.0-0.4); EOSINOPHILS PERCENT AUTO 9.5 % (0.0-6.0); IMMATURE GRAN ABSOLUTE AUTO 0.04 K/mm3 (0.00-0.05); IMMATURE GRAN PERCENT AUTO 0.5 % (0.0-0.4); LYMPHOCYTES ABSOLUTE AUTO 1.7 K/mm3 (1.0-4.8); LYMPHOCYTES PERCENT AUTO 22.3 % (24.0-44.0); MEAN PLATELET VOLUME 9.3 fl (9.4-12.4); MONOCYTES ABSOLUTE AUTO 0.6 K/mm3 (0.0-0.8); MONOCYTES PERCENT AUTO 8.5 % (0.0-8.0); NEUTROPHILS ABSOLUTE AUTO 4.3 K/mm3 (1.8-7.7); NEUTROPHILS PERCENT AUTO 58.0 % (41.0-71.0); NRBC ABSOLUTE 0.00 (0.00-0.02); NRBC PERCENT 0.0 % (0.0-0.2); PLATELET COUNT,PLT 170 K/mm3 (150-400); RED BLOOD CELL COUNT 4.66 M/mm3 (4.52-5.90); WHITE BLOOD CELL COUNT,WBC 7.40 K/mm3 (3.9-11.3)
[2025-06-04 18:28] LABS: A/G RATIO 1.1 (1-2); ASPARTATE AMNIOTRANSFERASE,AST 10.0 U/L (15-37); BILIRUBIN TOTAL 0.5 mg/dL (0.2-1.0); BLOOD UREA NITROGEN,BUN 27.0 mg/dL (7-18); CARBON DIOXIDE,CO2 30.0 mEq/L (21-32); CHLORIDE,CL 105.0 mEq/L (98-107); CREATINE KINASE,CK 55.0 U/L (39-308); CREATININE 1.7 mg/dL (0.7-1.3); EST CRCL DRUG DOSING (CG) 37.44 mL/min; ESTIMATED GFR 42.0 mL/min (>60); GLUCOSE RANDOM 98.0 mg/dL (70-99); POTASSIUM,K 4.3 mEq/L (3.5-5.1); PROTEIN TOTAL,TP 6.4 g/dl (6.4-8.2); SODIUM,NA 143.0 mEq/L (136-145); TROPONIN I HIGH SENSITIVITY 8.0 pg/mL (<=76)
[2025-06-04 18:39] LABS: ALANINE AMINOTRANSFERASE,ALT 15.0 U/L (16-63)
[2025-06-04 22:53] VITALS: BP 158/86
== END 2025-06-04 22:25 | disposition home or self-care (01) ==
LOC: JD.ED 17:29
DX: R07.89 Other chest pain (principal); I11.0 Hypertensive heart disease with heart failure; I50.9 Heart failure, unspecified; J45.909 Unspecified asthma, uncomplicated; E78.00 Pure hypercholesterolemia, unspecified; Z91.048 Other nonmedicinal substance allergy status; Z88.7 Allergy status to serum and vaccine
CPT/HCPCS: 36415; 71045; 80053; 82550; 83690; 83735; 83880; 84484; 85025; 87428; 93005; 94640; 99285; A9270; 93010; 99283